=== PATIENT | female | born 2005 | race Caucasian/White ===

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

== ENCOUNTER 2025-03-15 07:28 | Outpatient (CLI) | payer MEDICAID ==
[2025-03-15] VITALS (22 sets, daily range): BP systolic 62–117; BP diastolic 26–73; PULSE 57–114
[~2025-03-15 07:28] MED LIST changes: +GUAI120015 PO; +LORA10TA61 PO; +SODI45SP5 BOTHNARES
== END 2025-03-15 23:59 | disposition home or self-care (01) ==
LOC: CARD DIAG 07:28
PROVIDERS: ATTEND Physician Assistant
DX: R55 Syncope and collapse (principal); R07.89 Other chest pain; R00.2 Palpitations; R51.9 Headache, unspecified; R20.2 Paresthesia of skin
CPT/HCPCS: 93660